=== PATIENT | female | born 2000 | race Caucasian/White ===

== ENCOUNTER → 2021-07-28 | Outpatient (REF) | payer OTHER, MEDICAID ==
[~2021-07-28] MED LIST: COLA100C5 PO; IBUP80TA PO; IRON18TA PO; PERCOCET PO; PRENTAB9 PO; ZOLO100T PO
== END ==
LOC: M SFHCWAGY 13:12
PROVIDERS: ATTEND Advanced Practice Midwife
DX: Z36.85 Encounter for antenatal screening for Streptococcus B (principal); Z3A.00 Weeks of gestation of pregnancy not specified

== ENCOUNTER 2021-08-08 10:22 | Outpatient (CLI) | payer OTHER, MEDICAID ==
[~2021-08-08] VITALS: Ht 157.5 cm; Wt 95.0 kg
[2021-08-08] VITALS (8 sets, daily range): BP systolic 128–146; BP diastolic 63–81
[2021-08-08] MEDS ORDERED: ZOLO100T PO (10:44)
[2021-08-08] MEDS ORDERED: IRON18TA PO (10:44)
[2021-08-08] MEDS ORDERED: PRENTAB9 PO (10:44)
[2021-08-08] MEDS ORDERED: HOME MED LIST COMPLETE! XX SCH (10:45)
[2021-08-08 11:42] LABS: HEMATOCRIT 32.8 % (36.0-47.0); MEAN CORPUSCULAR HEMOGLOBIN 30.1 pg (27.0-33.0); MEAN CORPUSCULAR HGB CONC 33.5 g/dl (32.0-36.5); MEAN CORPUSCULAR VOLUME 89.6 fl (80.0-96.0); PLATELET COUNT, AUTOMATED 156 10^3/uL (150-450); RED BLOOD COUNT 3.66 10^6/uL (4.00-5.40); WHITE BLOOD COUNT 7.6 10^3/uL (4.0-10.0)
[2021-08-08 12:11] LABS: ALT/SGPT 19 U/L (12-78); BILIRUBIN,TOTAL 0.3 MG/DL (0.2-1.0); CREATININE FOR GFR 0.46 MG/DL (0.55-1.30); GLOMERULAR FILTRATION RATE > 60.0 (>60); LDH LACTATE DEHYDROGENASE 224 U/L (84-246)
[2021-08-08 12:42] LABS: TOTAL PROTEIN,RANDOM URINE 38.1 MG/DL (0.0-12.0)
--- NOTE | 2021-08-08 13:34 | IPNPDOC ---
Text Note Date of Service The patient was seen on 08/08/21. NOTE Subjective: Indy is a 21-year-old female who is a at 37.6 weeks gestation with an BINDU of 08/23/21. She initiated care in her first trimester of with [facility] and transferred to [facility] in her third trimester of care. Her has been complicated by anxiety and depression, which has been managed with Zoloft. She presents to labor and delivery after being seen in the office with an elevated BP of 142/64. She denies preeclamptic symptoms, vaginal bleeding, leaking of fluid or contractions. She reports active movement. Medical Hx: anxiety and depression stable on Zoloft 100 mg daily, obesity Surgical Hx: appendectomy Family Hx: MS, diabetes, lymphoma Social Hx: single, fob involved, Hx of gonorrhea, denies being a smoker, denies alcohol or drug use Objective: VS and labs: see below FHR: 140, moderate variability, positive accelerations, no decelerations. [place]: irregular contractions. General: Awake and alert. Sitting up in bed. Respiratory: regular rate. No use of accessory muscles. CTA bilaterally. Cardiac: No murmurs, rubs or gallops. Abdomen: gravid, soft and not tender with palpation Extremities: Generalized edema, no pitting; 1+ patellar reflexes Assessment: IUP at 37.6 weeks, TN Plan: Plan collaborated with Dr. Juarez. Patient given option to stay for induction today or to be put on for induction this weekend. Reviewed rationale of induction given her diagnosis. Patient and desire to go home today. She was scheduled for induction for tomorrow 08/09/21. Reviewed induction process. She understands that in the meantime she is to call or come in with any preeclamptic symptoms. Discharged to home with precautions. Reviewed access to care, kick counts, labor signs and danger signs to report. VS,Fishbone, I+O VS, Fishbone, I+O Laboratory Tests 08/08/21 11:16 Vital Signs Date Time Temp Pulse Resp B/P (MAP) Pulse Ox O2 Delivery O2 Flow Rate FiO2 08/08/21 12:29 103 18 136/74 (94) 08/08/21 10:46 97.8 Vital Signs Label Value Date Time Patient Temperature 97.8 degrees F 08/08/21 1046 Temperature Source Temporal 08/08/21 1046 Pulse 107 08/08/21 1046 Respiratory Rate 18 bpm 08/08/21 1046 Blood Pressure Assessment 146/74 (98) 08/08/21 1046 Source Automatic Cuff (NIBP) Blood Pressure Assessment 134/71 (92) 08/08/21 1116 Source Automatic Cuff (NIBP) Blood Pressure Assessment 138/76 (96) 08/08/21 1131 Source Automatic Cuff (NIBP) Blood Pressure Assessment 129/67 (87) 08/08/21 1146 Source Automatic Cuff (NIBP) Blood Pressure Assessment 128/63 (84) 08/08/21 1202 Source Automatic Cuff (NIBP) Blood Pressure Assessment 144/81 (102) 08/08/21 1228 Source Automatic Cuff (NIBP) Blood Pressure Assessment 136/74 (94) 08/08/21 1229 Source Automatic Cuff (NIBP) MASON APONTE CNM Aug 08, 2021 13:34
== END 2021-08-08 13:13 | disposition home or self-care (01) ==
LOC: M LDO 10:22
PROVIDERS: ATTEND Advanced Practice Midwife
DX: O16.3 Unspecified maternal hypertension, third trimester (principal); O99.343 Other mental disorders complicating pregnancy, third trimester; F32.A Depression, unspecified; F41.9 Anxiety disorder, unspecified; O99.213 Obesity complicating pregnancy, third trimester; E66.9 Obesity, unspecified; Z3A.37 37 weeks gestation of pregnancy

== ENCOUNTER 2021-08-10 13:14 | Inpatient (IN) | payer OTHER, MEDICAID ==
[2021-08-10] VITALS (9 sets, daily range): BP systolic 131–148; BP diastolic 69–86
[~2021-08-10] VITALS: Ht 157.5 cm; Wt 95.4 kg
[~2021-08-10 13:14] MED LIST changes: -COLA100C5 PO; -IBUP80TA PO; -PERCOCET PO
[2021-08-10 14:23] LABS: HEMATOCRIT 31.2 % (36.0-47.0); HEMOGLOBIN 10.6 g/dl (12.0-15.5); MEAN CORPUSCULAR HEMOGLOBIN 30.3 pg (27.0-33.0); MEAN CORPUSCULAR VOLUME 89.1 fl (80.0-96.0); PLATELET COUNT, AUTOMATED 172 10^3/uL (150-450); WHITE BLOOD COUNT 8.1 10^3/uL (4.0-10.0)
[2021-08-10] MEDS ORDERED: OXYTOCIN DRIP 30 UNITS in IV 1 EA IV PRN (15:50)
[2021-08-10] MEDS ORDERED: LIDOCAINE 1% MDV 20ML VIAL INFIL PRN (15:50)
--- NOTE | 2021-08-10 16:12 | HPEPDOC ---
Obstetrical History & Physical General Date of Admission Aug 10, 2021 at 13:14 History of Present Illness Indy is a 21-year-old female who is a at 38.1 weeks gestation with an BINDU of 08/23/21. She initiated care in her first trimester of with [facility] and transferred to [facility] in her third trimester of care. Her has been complicated by anxiety and depression, which has been managed with Zoloft. She presents today for induction of labor due to gestational hypertension. 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 of STD Past Medical History Surgical History: Appendectomy Family History Significant Family History: Cancer, Diabetes Social History Marital Status: Single Psychosocial History: Anxiety, Depression * Smoker: non-smoker Alcohol: Denies Drugs: denies Allergies Coded Allergies: No Known Allergies (Verified Allergy, Unknown, 08/08/21) Medications Scheduled Iron (Iron) 18 Mg Tablet, 65 MG PO DAILY No.137/Iron/Folic Acd ( Vitamin Tablet) 1 Each Tablet, 1 TAB PO DAILY Miscellaneous Medications Sertraline Hcl (Zoloft) 100 Mg Tablet, 100 MG PO Physical Examination Physical Examination GENERAL: Alert and oriented times three. BREAST: . ABDOMEN: Gravid and non-tender to touch. FETUS: Is vertex (VTX) by sterile vaginal examination (SVE), fetus is vertex (VTX) by Gera. HEART RATE: Regular rate and rhythm. LUNGS: Clear to auscultation (CTA). EXTREMITIES: No edema. No clonus. Deep tendon reflexes (DTRs) + . Vital Signs/I&O Vital Signs Date Time Temp Pulse Resp B/P (MAP) Pulse Ox O2 Delivery O2 Flow Rate FiO2 08/10/21 15:19 92 148/83 (104) 08/10/21 13:36 98.4 Laboratory Data 24H LABS Laboratory Tests 2 08/10/21 13:38: Serology Scanned Report Hepatitis B Testing 08/10/21 14:09: Nucleated Red Blood Cells % (auto) 0.0 08/10/21 14:22: Coronavirus (COVID-19)(PCR) NEGATIVE CBC/BMP Laboratory Tests 08/10/21 14:09 Pertinent Laboratoy Data Blood Type: A- HIV: Negative Hepatitis B: Negative Rapid Plasma Reagin: Nonreactive Chlamydia/Gonorrhea: Negative Group B Streptococcus: Negative Cystic Fibrosis: Negative Glucose Tolerance Test: 119 Vaginal Examination Dilation: Fingertip Station: -3 Cervical Consistency: Firm Presentation: Cephalic presentation Assessment Variability: Moderate Tocometer Contractions: No Assessment/Plan Assessment 21-year-old G1 at 38 weeks 1 day with gestational hypertensioncurrently stable Reassuring status Plan is for induction of labor. Patient has been thoroughly counseled regarding induction of labor as well as her diagnosis of gestational hypertension. Discussed medication as well as procedures performed in labor delivery. She has been verbally consented for emergency surgery blood products anesthesia and desires to proceed with admission. Plan Admit and orient. Health Care Social Worker and consent. Diet: Regular. Group B Streptococcus (GBS) negative. Labs and intravenous (IV) per unit protocol. Counseled on Pitocin and induction of labor (IOL). Anticipate normal spontaneous delivery (). C-S as appropriate. MAY CASTILLO MD. Aug 10, 2021 16:12
[2021-08-10] MEDS: miSOPROStol 50MCG 1/2 TABLET PO SCH ×2 (16:13→20:51)
[2021-08-10 16:28] LABS: ALT/SGPT 17 U/L (12-78); BILIRUBIN,TOTAL 0.2 MG/DL (0.2-1.0); GLOMERULAR FILTRATION RATE > 60.0 (>60); LDH LACTATE DEHYDROGENASE 166 U/L (84-246); URIC ACID 4.2 MG/DL (2.6-6.0)
[2021-08-10 17:08] LABS: TOTAL PROTEIN,RANDOM URINE 18.5 MG/DL (0.0-12.0)
[2021-08-10] MEDS ORDERED: ACETAMINOPHEN 500 MG TAB PO ONE (20:25)
[2021-08-10] MEDS: SERTRALINE 100 MG TAB PO SCH (20:51)
[2021-08-11] VITALS (46 sets, daily range): BP systolic 120–190; BP diastolic 59–111
[2021-08-11] MEDS: miSOPROStol 50MCG 1/2 TABLET PO SCH ×3 (00:52→07:50)
[2021-08-11] MEDS ORDERED: BUTORPHANOL 2 MG/ML INJ (J0595) IV ONE (11:00)
[2021-08-11] MEDS ORDERED: PROMETHAZINE INJ 25 MG/ML VIAL (J2550) IV ONE (11:00)
[2021-08-11] MEDS ORDERED: OXYTOCIN DRIP 30 UNITS in IV 1 EA IV SCH (11:25)
--- NOTE | 2021-08-11 11:28 | IPNPDOC ---
Obstetrical Progress Note Date of Service Aug 11, 2021 Subjective Patient reports cramping with her contractions. Objective Vital Signs Date Time Temp Pulse Resp B/P (MAP) Pulse Ox O2 Delivery O2 Flow Rate FiO2 08/11/21 09:28 95 142/97 (112) 08/11/21 07:27 97.6 18 Assessment Heart Rate (FHR): 140 Variability: Moderate Accelerations: Positive Decelerations: None Heart Rate Tracing: Category I Tocometer Contractions: Yes Frequency: regular Sterile Vaginal Examination Dilation: Fingertip Cervical Consistency: Soft Cervical Position: Middle Postion/Presentation: Cephalic presentation Assessment and Plan Age: 21 EGA at Admission: 38.2 Status: Reassuring Group B Streptococcus: Negative Anticipate: Vaginal Delivery Additional Comments Bansal bulb inserted after education with 60/40 cc. Patient tolerated procedure well. IV Pitocin ordered. IV medication ordered per patient request. MASON APONTE CNM Aug 11, 2021 11:28
[2021-08-11] MEDS: LR 1,000 ML IV SCH ×2 (11:55→18:20)
--- NOTE | 2021-08-11 20:21 | IPNPDOC ---
Obstetrical Progress Note Date of Service Aug 11, 2021 Subjective Patient reports her contractions are making her uncomfortable. Objective Vital Signs Date Time Temp Pulse Resp B/P (MAP) Pulse Ox O2 Delivery O2 Flow Rate FiO2 08/11/21 18:53 99.3 103 18 143/89 (107) Assessment Heart Rate (FHR): 140 Variability: Moderate Accelerations: Positive Decelerations: None Heart Rate Tracing: Category I Tocometer Contractions: Yes Frequency: regular Sterile Vaginal Examination Dilation: 5 cm Effacement (%): 80% Station: -2 Cervical Consistency: Soft Cervical Position: Anterior Postion/Presentation: Cephalic presentation Assessment and Plan Age: 21 EGA at Admission: 38.2 Status: Reassuring Group B Streptococcus: Negative Anticipate: Vaginal Delivery Additional Comments Bansal catheter hanging from her cervix. Removed. Patient requesting an epidural for pain management. MASON APONTE CNM Aug 11, 2021 20:21
[2021-08-11 20:46] LABS: HEMATOCRIT 30.8 % (36.0-47.0); HEMOGLOBIN 10.3 g/dl (12.0-15.5); MEAN CORPUSCULAR HEMOGLOBIN 29.9 pg (27.0-33.0); MEAN CORPUSCULAR HGB CONC 33.4 g/dl (32.0-36.5); MEAN CORPUSCULAR VOLUME 89.5 fl (80.0-96.0); PLATELET COUNT, AUTOMATED 146 10^3/uL (150-450); RED BLOOD COUNT 3.44 10^6/uL (4.00-5.40); WHITE BLOOD COUNT 9.8 10^3/uL (4.0-10.0)
[2021-08-11] MEDS ORDERED: FENTANYL 2MCG/ML ROPIVACAINE 0.2% IN 0.9% NACL 100ML IVBAG As Ordered ONE (20:56)
[2021-08-11] MEDS ORDERED: LACTATED RINGER'S 1000 ML IV PRN (22:00)
[2021-08-11] MEDS ORDERED: ePHEDrine SULFATE 25 MG/5 ML(5MG/ML) SYRINGE IV PRN (22:00)
[2021-08-11] MEDS ORDERED: EPIDURAL COMMENT XX SCH (22:00)
[2021-08-11] MEDS ORDERED: EPIDURAL/PCA KEYS XX PRN (22:00)
[2021-08-11] MEDS ORDERED: FENTANYL/ROPIVACAINE/NACL BAG 100 ML EPIDURAL SCH (22:00)
[2021-08-11] MEDS ORDERED: NALOXONE INJ 0.4MG/1ML VIAL (J2310 PER 1MG) IV PRN (22:00)
[2021-08-11] MEDS ORDERED: diphenhydrAMINE 50MG/ML VIAL (J1200) IV PRN (22:00)
[2021-08-11] MEDS ORDERED: REFRIGERATOR IV KEYS XX PRN (22:00)
[2021-08-11] MEDS ORDERED: ONDANSETRON 4MG/2ML VIAL IV PRN (22:00)
[2021-08-11] MEDS: SERTRALINE 100 MG TAB PO SCH (22:46)
[2021-08-12] VITALS (8 sets, daily range): BP systolic 120–140; BP diastolic 62–84
--- NOTE | 2021-08-12 01:08 | IPNPDOC ---
Obstetrical Progress Note Date of Service Aug 12, 2021 Subjective Patient is comfortable with her epidural. Objective Vital Signs Date Time Temp Pulse Resp B/P (MAP) Pulse Ox O2 Delivery O2 Flow Rate FiO2 08/12/21 00:22 98.6 93 138/65 (89) 08/11/21 18:53 18 Assessment Heart Rate (FHR): 140 Variability: Moderate Accelerations: Positive Decelerations: None Heart Rate Tracing: Category I Tocometer Contractions: Yes Frequency: regular, other (2-3 minutes) Sterile Vaginal Examination Dilation: 5 cm Effacement (%): 80% Station: -2 Cervical Consistency: Soft Cervical Position: Anterior Postion/Presentation: Cephalic presentation Assessment and Plan Age: 21 : 1 Term: 0 Pre-term: 0 Abortions: 0 Livin EGA at Admission: 38.1 Weeks & Days 38.3 weeks gestation Status: Reassuring Group B Streptococcus: Negative Anticipate: Vaginal Delivery Additional Comments IV Pitocin at 14 mu/min. AROM to a moderate amount of clear fluid. Internal monitors placed due to difficulty monitoring patient's contractions and FHR. MASON APONTE CNM Aug 12, 2021 01:08
[2021-08-12] MEDS ORDERED: ceFAZolin SOD 2 GM in IV 1 EA IV ONE (05:25)
[2021-08-12] MEDS ORDERED: AZITHROMYCIN INJ 500 MG, VIAL MATE ADAPTER 1 EACH in NS 250 ML IV ONE (05:25)
[2021-08-12] MEDS ORDERED: BICITRA 30ML SOLN UDC PO ONE (05:25)
--- NOTE | 2021-08-12 05:35 | IPNPDOC ---
Obstetrical Progress Note Date of Service Aug 12, 2021 Subjective Patient is comfortable with her epidural. Objective Vital Signs Date Time Temp Pulse Resp B/P (MAP) Pulse Ox O2 Delivery O2 Flow Rate FiO2 08/12/21 00:22 98.6 93 138/65 (89) 08/11/21 18:53 18 Assessment Heart Rate (FHR): 140 Variability: Moderate Accelerations: Positive Decelerations: None Heart Rate Tracing: Category I Tocometer Contractions: Yes Frequency: regular, every 1-3 min. Sterile Vaginal Examination Dilation: 5 cm Effacement (%): 80% Assessment and Plan Age: 21 : 1 Term: 0 Pre-term: 0 Abortions: 0 Livin EGA at Admission: 38.1 Weeks & Days 38.3 Status: Reassuring Group B Streptococcus: Negative Anticipate: Section Additional Comments No change in 9+ hours with adequate Pitocin and AROM with internal monitors. Reviewed recommendation of section due to arrest of dilation. Dr. Pardo present in department. MASON APONTE CNM Aug 12, 2021 05:35
[2021-08-12] MEDS ORDERED: RHOGAM 300 MCG (1500 IU) INJ (J2790) IM SCH (05:50)
[2021-08-12] MEDS ORDERED: SIMETHICONE 80MG CHEW TAB PO PRN (05:50)
[2021-08-12] MEDS ORDERED: OXYTOCIN DRIP 30 UNITS in IV 1 EA IV SCH (05:50)
[2021-08-12] MEDS ORDERED: MOM 30ML SUSPENSION UDC PO PRN (05:50)
[2021-08-12] MEDS ORDERED: PERCOCET 5MG/325MG TAB PO PRN ×2 (05:50)
[2021-08-12] MEDS ORDERED: MEASLES,MUMPS,RUBELLA VACCINE INJ (MMR-II) (90707) SC SCH (05:50)
[2021-08-12] MEDS ORDERED: ONDANSETRON 4 MG TAB PO PRN (05:50)
[2021-08-12] MEDS ORDERED: NALOXONE INJ 0.4MG/1ML VIAL (J2310 PER 1MG) IV PRN ×2 (06:36)
[2021-08-12] MEDS ORDERED: diphenhydrAMINE 50MG/ML VIAL (J1200) IV PRN (06:36)
[2021-08-12] MEDS ORDERED: METOCLOPRAMIDE INJ 10MG/2ML VIAL (J2765 PER 1) IV PRN (06:36)
[2021-08-12] MEDS ORDERED: ONDANSETRON 4MG/2ML VIAL IV PRN ×2 (06:36→07:30)
[2021-08-12] MEDS ORDERED: NALBUPHINE HCL 10 MG/ML AMP (J2300) IV PRN (06:36)
[2021-08-12] MEDS ORDERED: ONDANSETRON 4MG/2ML VIAL As Ordered ONE (06:37)
[2021-08-12] MEDS ORDERED: KETAMINE HCL 200 MG/20 ML VIAL As Ordered ONE (06:37)
[2021-08-12] MEDS ORDERED: KETOROLAC 60MG 2ML VIAL As Ordered ONE (06:37)
[2021-08-12] MEDS ORDERED: LIDOCAINE 2% W/EPINEPHRINE 20ML VIAL **PRES FREE As Ordered ONE (06:37)
[2021-08-12] MEDS ORDERED: SODIUM BICARBONATE 8.4% INJ 50MEQ 50 ML VIAL As Ordered ONE (06:37)
[2021-08-12] MEDS ORDERED: ACETAMINOPHEN 1000MG 100ML IV BTL (OFIRMEV) (J0131 PER 10MG) As Ordered ONE (06:37)
[2021-08-12] MEDS ORDERED: OXYTOCIN INJ 10 UNITS/ML VIAL (J2590) As Ordered ONE (06:37)
[2021-08-12] MEDS ORDERED: MORPHINE PRES-FREE INJ 10 MG/10 ML VIAL (J2274) As Ordered ONE (06:37)
[2021-08-12] MEDS ORDERED: dexameTHASONE 4 MG/ML 1ML VIAL (J1100 PER 1MG) As Ordered ONE (06:44)
[2021-08-12] MEDS ORDERED: MIDAZOLAM INJ 2MG/2ML VIAL (J2250 PER 1MG) As Ordered ONE (06:44)
[2021-08-12 06:52] LABS: CORD GAS ABE A -3.6; CORD GAS HCO3 A 23.8 MEQ/L; CORD GAS O2 SAT A 70.7 %; CORD GAS PCO2 A 51.6 mmHg; CORD GAS PH A 7.282 UNITS; CORD GAS SBC A 20.9 MEQ/L; CORD GAS TCO2 A 25.4 MEQ/L
[2021-08-12 06:53] LABS: CORD GAS ABE V -0.9; CORD GAS HCO3 V 24.2 MEQ/L; CORD GAS O2 SAT V 89.4 %; CORD GAS PCO2 V 41.4 mmHg; CORD GAS PH V 7.384 UNITS; CORD GAS PO2 V 44.2 mmHg; CORD GAS SBC V 23.5 MEQ/L; CORD GAS TCO2 V 25.4 MEQ/L
[2021-08-12] MEDS ORDERED: fentaNYL 100 MCG/2 ML INJECTION (J3010) IV PRN (07:30)
[2021-08-12] MEDS ORDERED: oxyCODONE 5MG TAB PO PRN (07:30)
[2021-08-12] MEDS ORDERED: IBUPROFEN 800 MG TAB PO SCH (08:00)
[2021-08-12] MEDS ORDERED: OXYTOCIN 30 UNITS IN 0.9% NaCl 500ML IV BAG (J2590) As Ordered ONE (08:19)
[2021-08-12] MEDS: DOCUSATE SODIUM 100MG CAPSULE PO SCH ×2 (09:00→20:35)
[2021-08-12] MEDS: PRENATAL VITAMINS CHEWABLE TABLET PO SCH (09:00)
--- NOTE | 2021-08-12 10:43 | RO ---
OPERATIVE NOTE DATE OF OPERATION: 08/12/2021 Indy is a 21-year-old female, 1, para 0, with a history of gestational hypertension, was admitted for an induction. She had an arrest of dilatation at 5 cm dilated. After extensive counseling, the decision was made to proceed with a primary low transverse section. PREOPERATIVE DIAGNOSIS: 1. Term . 2. Arrest of dilatation. 3. Gestational hypertension. POSTOPERATIVE DIAGNOSIS: 1. Term . 2. Arrest of dilatation. 3. Gestational hypertension. 4. Hand wrapped around the arm x1. PROCEDURE: Primary low transverse section via Pfannenstiel incision. SURGEON: Yg Pardo DO TOP AND TRIM WORKER: Mackenzie Burch CNM ANESTHESIA: Epidural. COMPLICATIONS: None. ESTIMATED BLOOD LOSS: 400 mL FINDINGS: Male in occiput transverse position, 8-9, weight 8 lb, 3 oz. Normal appearing tubes and ovaries. DESCRIPTION OF PROCEDURE: After obtaining informed consent, the patient was taken to the operating room where epidural anesthetic was found to be adequate. She was then draped and prepped in the usual sterile fashion in the supine position. At this point, a Pfannenstiel incision was made. The incision was carried down to the fascia. The fascia was incised in a midline fashion and carried through laterally. The superior aspect of the fascia was then grasped with a Felicity clamp, tented off and dissected off the rectus muscles sharply. The inferior aspect was dissected off in a similar fashion. Then rectus muscles were in midline fashion. The peritoneum was identified. The peritoneal cavity was entered bluntly. Superior and inferior dissection of dissection of the peritoneum was then done with good visualization of the bladder. At this point, a Mobius skin retractor was placed. A low transverse uterine incision was made. The was delivered in atraumatic fashion. The nose and mouth were bulb suctioned. The cord was doubly clamped and cut and the infant was handed over to the awaiting warmer. Cord blood and cord gas were sent. The placenta was removed manually. The uterus was cleared of all clot and debris and the uterine incision was then repaired in two separate layers of 0 Vicryl sutures. The fascia was closed in two separate segments of 0 Vicryl sutures. All superficial bleeders were coagulated and the skin was reapproximated in a subcuticular fashion using 3-0 Vicryl on a Charly. Steri-Strips were placed. The patient tolerated the procedure well. She was then transferred to recovery room in stable condition.
[2021-08-12] MEDS: IBUPROFEN 800 MG TAB PO SCH ×2 (15:24→23:56)
[2021-08-13 02:00] VITALS: BP 123/61
[2021-08-13 06:00] VITALS: BP 130/59
[2021-08-13] MEDS: IBUPROFEN 800 MG TAB PO SCH ×3 (06:44→22:37)
[2021-08-13] MEDS: PRENATAL VITAMINS CHEWABLE TABLET PO SCH (07:53)
[2021-08-13] MEDS: DOCUSATE SODIUM 100MG CAPSULE PO SCH ×2 (07:53→20:17)
[2021-08-13 08:39] LABS: HEMATOCRIT 25.1 % (36.0-47.0); MEAN CORPUSCULAR HEMOGLOBIN 29.9 pg (27.0-33.0); MEAN CORPUSCULAR HGB CONC 33.1 g/dl (32.0-36.5); MEAN CORPUSCULAR VOLUME 90.3 fl (80.0-96.0); PLATELET COUNT, AUTOMATED 141 10^3/uL (150-450); RED BLOOD COUNT 2.78 10^6/uL (4.00-5.40)
[2021-08-13 08:41] LABS: HEMOGLOBIN 8.3 g/dl (12.0-15.5)
[2021-08-13 10:00] VITALS: BP 119/59
[2021-08-13 14:00] VITALS: BP 131/61
[2021-08-13 17:49] VITALS: BP 129/60
[2021-08-13 22:00] VITALS: BP 146/79
[2021-08-14 02:00] VITALS: BP 137/84
[2021-08-14 06:00] VITALS: BP 134/81
[2021-08-14] MEDS: PRENATAL VITAMINS CHEWABLE TABLET PO SCH (08:26)
[2021-08-14] MEDS: DOCUSATE SODIUM 100MG CAPSULE PO SCH (08:26)
[2021-08-14] MEDS ORDERED: IBUP80TA PO (10:00)
[2021-08-14] MEDS ORDERED: PERCOCET PO (10:00)
[2021-08-14] MEDS ORDERED: COLA100C5 PO (10:00)
[2021-08-14 10:17] VITALS: BP 147/78
--- NOTE | 2021-08-14 10:37 | OBDS ---
[facility] Obstetrical Discharge Sum. Obstetrical Discharge Summary Date: Aug 14, 2021 : 1 Term: 1 Rh: Negative Delivery LTCS Infant Sex: Male A/P, Post Course List any complications Admission diagnosis: IOL for gHTN Discharge diagnosis: post Condition at Discharge: stable Discharge Instructions: home Activity: As tolerated, nothing in the vagina for 6 weeks Diet: regular Medications: see med rec Follow-up:2 week incision check ABHISHEK BA MD Aug 14, 2021 10:37
== END 2021-08-14 13:25 | disposition home or self-care (01) | DRG 540 ==
LOC: M LDI 13:14 → M OBS 08-12 09:13
PROVIDERS: ADMIT Obstetrics & Gynecology; ATTEND Obstetrics & Gynecology
PROC: 3E0P7GC Introduction of Other Therapeutic Substance into Female Reproductive, Via Natural or Artificial Opening (ICD-10-PCS; 2021-08-10)
PROC: 10907ZC Drainage of Amniotic Fluid, Therapeutic from Products of Conception, Via Natural or Artificial Opening (ICD-10-PCS; 2021-08-12)
PROC: 10D00Z1 Extraction of Products of Conception, Low, Open Approach (ICD-10-PCS; principal; 2021-08-12 07:01)
DX: O13.4 Gestational [pregnancy-induced] hypertension without significant proteinuria, complicating childbirth (principal); Z3A.38 38 weeks gestation of pregnancy; Z37.0 Single live birth; O99.344 Other mental disorders complicating childbirth; F41.8 Other specified anxiety disorders; O62.0 Primary inadequate contractions

== ENCOUNTER → 2025-06-27 | Outpatient (CLI) | payer OTHER ==
[~2025-06-27] MED LIST changes: +COLA100C5 PO; +IBUP80TA PO; +PERCOCET PO
== END ==
LOC: M CARPUL 09:26
PROVIDERS: ATTEND Registered Nurse
DX: R94.31 Abnormal electrocardiogram [ECG] [EKG] (principal); R01.1 Cardiac murmur, unspecified; I10 Essential (primary) hypertension; I08.0 Rheumatic disorders of both mitral and aortic valves